=== PATIENT | female | born 1990 | race Caucasian/White ===

== ENCOUNTER 2024-07-27 18:43 | Emergency (ER) | payer OTHER ==
[2024-07-27 18:50] VITALS: BP 124/79; PULSE 73; RESP 18; TEMP 97.9; BMI 19.2
[2024-07-27] MEDS ORDERED: MAG HYDROX/AL HYDROX/SIMETH 30 ML UNIT-DOSE CUP ONE (20:09)
[2024-07-27] MEDS ORDERED: FAMOTIDINE 20 MG TABLET ONE (20:09)
[2024-07-27] MEDS: FAMOTIDINE 20 MG TABLET PO ONE (20:31)
[2024-07-27] MEDS: MAG HYDROX/AL HYDROX/SIMETH 30 ML UNIT-DOSE CUP PO ONE (20:31)
[2024-07-27 20:45] LABS: ABSOLUTE IMMATURE GRANULOCYTES 0.02 x10^3/uL (0.0-0.031); BASOPHILS # 0.03 x10^3/uL (0.01-0.08); EOSINOPHIL % 0.7 % (0.7-5.8); EOSINOPHILS # 0.05 x10^3/uL (0.04-0.36); HEMOGLOBIN 13.2 g/dL (11.2-15.7); MEAN CELL VOLUME 89.5 fl (79.4-94.8); MEAN PLT VOLUME 10.4 fl (9.4-12.3); MONOCYTE # 0.37 x10^3/uL (0.24-0.86); MONOCYTE % 5.3 % (4.7-12.5); PLATELET COUNT 231 x10^3/uL (182-369); RDW 12.7 % (12.1-16.8)
[2024-07-27 21:00] LABS: INR 1.17 (0.83-1.09); PROTHROMBIN TIME (PATIENT) 12.9 SEC (9.7-13.0)
[2024-07-27 21:01] LABS: POTASSIUM 4.4 mmol/L (3.5-5.1)
[2024-07-27 21:03] LABS: ACTIVATED PTT 29.5 SECONDS (25.2-36.5); ALBUMIN 4.7 g/dl (3.4-5.0); BLOOD UREA NITROGEN 10.1 mg/dL (7-18); CALCIUM 9.7 mg/dL (8.5-10.1)
[2024-07-27 21:06] LABS: CREATININE 0.8 mg/dL (0.55-1.3)
[2024-07-27 21:08] LABS: BILIRUBIN,TOTAL 0.3 mg/dL (0.2-1); TOT PROT 7.6 g/dl (6.4-8.2)
== END 2024-07-27 22:34 | disposition home or self-care (01) ==
LOC: JER 18:43
DX: R07.89 Other chest pain (principal)
CPT/HCPCS: 36415; 71046-TC-FY; 80053; 84484; 84703; 85025; 85379; 85610; 85730; 93005; 93010; 99285-25